=== PATIENT | male | born 1945 | race Caucasian/White ===

== ENCOUNTER 2024-01-31 19:25 | Inpatient (IN) | payer MEDICARE, OTHER ==
[~2024-01-31] VITALS: Ht 185.4 cm; Wt 57.0 kg
[2024-01-31 20:35] LABS: Basophils # (auto) 0 10 ^3/uL (0-0.2); Basophils % (auto) 0.5 % (0.0-2.0); Eosinophils # (auto) 0 10 ^3/uL (0-0.8); Hematocrit 40.9 % (41.0-53.0); Hemoglobin 13.9 g/dL (13.5-17.5); Lymphocytes # (auto) 0.5 10 ^3/uL (0.4-5.4); Lymphocytes % (auto) 6.6 % (10.0-50.0); Mean Corpuscular Hemoglobin 31.6 pg (28.0-32.0); Mean Corpuscular Hgb Conc. 33.9 g/dL (32.0-36.0); Mean Corpuscular Volume 93.3 fL (80.0-100.0); Monocytes # (auto) 0.3 10 ^3/uL (0-1.3); Monocytes % (auto) 4.3 % (0.0-12.0); Neutrophils # (auto) 6.9 10 ^3/uL (1.6-8.6); Neutrophils % (auto) 88.6 % (37.0-80.0); Red Blood Cells 4.39 10^6/uL (4.5-5.90); Red Cell Distribution Width 14.2 % (11.8-14.3); White Blood Cell 7.8 10^3/uL (4.4-10.8)
[2024-01-31 20:53] LABS: Alanine Aminotransferase 18 U/L (7-40); Albumin 4.5 g/dL (3.2-4.8); Alkaline Phosphatase 104 U/L (46-116); Anion Gap 8 (5-15); Aspartate Aminotransferase 18 U/L (13-40); BUN/Creatinine Ratio 10.8 (10.0-20.0); Bilirubin, Total 0.8 mg/dL (0.2-1.0); Blood Urea Nitrogen 14 mg/dL (9-23); Calcium 9.8 mg/dL (8.7-10.4); Carbon Dioxide 24 mmol/L (20-30); Chloride 103 mmol/L (98-107); Glucose 135 mg/dL (74-106); Potassium 3.9 mmol/L (3.5-5.1); Sodium 135 mmol/L (136-145); Total Protein 7.5 g/dL (5.7-8.2)
[2024-01-31 22:05] LABS: Urine Bacteria FEW /hpf (None Seen); Urine Blood TRACE /uL (Negative); Urine Clarity Clear (Clear); Urine Color Yellow (Yellow); Urine Mucus FEW (None Seen); Urine Protein, UAD 1+ (Negative); Urine Specific Gravity 1.021 (1.001-1.035); Urine Urobilinogen Normal (Negative); Urine WBC 1 /hpf (0 - 3); Urine pH 5.5 (5.0-9.0)
[2024-02-01 03:28] VITALS: PULSE 61; RESP 12; O2SAT 96
[2024-02-01] MEDS ORDERED: ACETAMINOPHEN 325 MG TAB PO PRN (11:00)
[2024-02-01] MEDS ORDERED: NITROGLYCERIN 0.4 MG SL TAB SL PRN (11:00)
[2024-02-01] MEDS ORDERED: MORPHINE SULFATE INJ 2 MG/ml SYRG IV PRN (11:00)
[2024-02-01] MEDS: SODIUM CHLORIDE 0.9% 1,000 ML IV ONE (19:36)
[2024-02-01] MEDS: SODIUM CHLORIDE 0.9% 1,000 ML IV SCH (20:43)
[2024-02-01 20:46] VITALS: PULSE 92; RESP 16; O2SAT 99
[2024-02-01 22:01] VITALS: BP 162/75; PULSE 78; RESP 17; RESP 18; TEMP 97.9; O2SAT 95
[2024-02-02 01:00] VITALS: BP 127/71; PULSE 88; RESP 16; TEMP 97.8; O2SAT 97
[2024-02-02] MEDS ORDERED: RIV15T PO (01:24)
[2024-02-02] MEDS ORDERED: ATOR-47 PO (01:24)
[2024-02-02] MEDS ORDERED: LISI20TA56 PO (01:24)
[2024-02-02] MEDS ORDERED: AMLO1TAB23 PO (01:24)
[2024-02-02 04:59] VITALS: BP 148/88; PULSE 69; RESP 20; TEMP 97.9; O2SAT 97
[2024-02-02 06:08] LABS: Basophils # (auto) 0.1 10 ^3/uL (0-0.2); Eosinophils # (auto) 0.1 10 ^3/uL (0-0.8); Eosinophils % (auto) 1.1 % (0.0-7.0); Hematocrit 38.6 % (41.0-53.0); Hemoglobin 13.4 g/dL (13.5-17.5); Lymphocytes % (auto) 16.2 % (10.0-50.0); Mean Corpuscular Hemoglobin 31.6 pg (28.0-32.0); Mean Corpuscular Hgb Conc. 34.8 g/dL (32.0-36.0); Mean Corpuscular Volume 91.1 fL (80.0-100.0); Monocytes # (auto) 0.5 10 ^3/uL (0-1.3); Monocytes % (auto) 8.4 % (0.0-12.0); Neutrophils # (auto) 4.7 10 ^3/uL (1.6-8.6); Neutrophils % (auto) 73.3 % (37.0-80.0); Red Blood Cells 4.24 10^6/uL (4.5-5.90); Red Cell Distribution Width 14.3 % (11.8-14.3); White Blood Cell 6.5 10^3/uL (4.4-10.8)
[2024-02-02 06:22] LABS: Alanine Aminotransferase 16 U/L (7-40); Albumin 4.4 g/dL (3.2-4.8); Alkaline Phosphatase 101 U/L (46-116); Anion Gap 6 (5-15); Aspartate Aminotransferase 39 U/L (13-40); BUN/Creatinine Ratio 15.4 (10.0-20.0); Blood Urea Nitrogen 20 mg/dL (9-23); Carbon Dioxide 29 mmol/L (20-30); Chloride 102 mmol/L (98-107); Glucose 98 mg/dL (74-106); LDL Cholesterol 116 mg/dL (< 100); Magnesium 1.9 mg/dL (1.6-2.6); Potassium 3.7 mmol/L (3.5-5.1); Sodium 137 mmol/L (136-145); Triglycerides 113 mg/dL (< 150)
[2024-02-02 06:23] LABS: Bilirubin, Total 0.7 mg/dL (0.2-1.0); Cholesterol 195 mg/dL (< 200); HDL Cholesterol 54 mg/dL (40-59); Total Protein 7.2 g/dL (5.7-8.2)
[2024-02-02 08:00] VITALS: PULSE 84; RESP 16; O2SAT 98
[2024-02-02 08:25] VITALS: BP 150/84; PULSE 84; RESP 16; TEMP 97.7; O2SAT 98
[2024-02-02 12:30] VITALS: BP 127/79; PULSE 87; RESP 16; TEMP 97.8; O2SAT 98
[2024-02-02] MEDS: LEVOTHYROXINE SODIUM 50 MCG TAB PO ONE (13:59)
[2024-02-02] MEDS ORDERED: ASPI1TAB20 PO (14:24)
[2024-02-02] MEDS ORDERED: CHOL20007 PO (14:24)
[2024-02-02] MEDS ORDERED: LEVO50TA7 PO (14:27)
[2024-02-02 15:05] VITALS: BP 127/79; PULSE 87; RESP 16; TEMP 97.8; O2SAT 98
[2024-02-02] MEDS ORDERED: RIVAROXABAN 15 MG TAB PO SCH (18:00)
[2024-02-02] MEDS ORDERED: ATORVASTATIN 20 MG TAB PO SCH (22:00)
[2024-02-03] MEDS ORDERED: LEVOTHYROXINE SODIUM 50 MCG TAB PO SCH (06:00)
[2024-02-03] MEDS ORDERED: LISINOPRIL 20 MG TAB PO SCH (10:00)
[2024-02-03] MEDS ORDERED: amLODIPine BESYLATE 5 MG TAB PO SCH (10:00)
== END 2024-02-02 16:21 | disposition home or self-care (01) | DRG 640 ==
LOC: EDBD 19:25 → ER 19:25 → OVERFLOW 02-01 10:55 → WEST WING 02-01 21:34
PROVIDERS: ADMIT Internal Medicine Geriatric Medicine; ATTEND Internal Medicine Geriatric Medicine
DX: E86.0 Dehydration (principal); G93.41 Metabolic encephalopathy; E87.1 Hypo-osmolality and hyponatremia; F03.90 Unspecified dementia, unspecified severity, without behavioral disturbance, psychotic disturbance, mood disturbance, and anxiety; I10 Essential (primary) hypertension; E78.5 Hyperlipidemia, unspecified; E03.9 Hypothyroidism, unspecified; Z95.0 Presence of cardiac pacemaker
CPT/HCPCS: 36415; 70450; 71045; 80053; 80061; 81001; 83735; 83880; 84443; 84484; 85025; 97110; 97116; 97163; 97530; G0378